=== PATIENT | female | born 1955 | race Caucasian/White ===

== ENCOUNTER 2018-05-21 00:33 | Outpatient (CLI) | payer BC, SELFPAY ==
--- NOTE | 2018-05-21 09:30 | DI.MAMMO_ITS ---
SYMPTOMS/DIAGNOSIS: BREAST CA SCREENING, Z12.31 MAMMOGRAMS: Mammograms were interpreted according to the usual protocol including computer analysis with CAD system, tomosynthesis and C view imaging. Comparison is with the prior examinations. No masses or microcalcifications are seen. There is nothing to suggest malignancy. IMPRESSION: Negative mammogram. Routine screening is recommended. Category 1 , breast density C. MQSA ASSESSMENT OF FINDINGS: Negative. Category 1. Patient will receive a letter notifying them of these results. Bi-RADS category C. The breasts are heterogeneously dense, which may obscure small masses.
== END 2018-05-21 00:53 ==
PROVIDERS: PCP Family Medicine; Visit Provider Nurse Practitioner
DX: Z12.31 Encounter for screening mammogram for malignant neoplasm of breast (principal)
CPT/HCPCS: 77063; 77067

== ENCOUNTER 2020-02-03 10:26 | Outpatient (CLI) | payer OTHER, SELFPAY ==
[2020-02-07 21:51] LABS: SARS-CoV-2 RNA Undetected (Undetected); SARS-CoV-2 Specimen Source Nasopharynx
== END 2020-02-03 10:46 ==
PROVIDERS: PCP Family Medicine; Visit Provider Family Medicine
DX: Z11.59 Encounter for screening for other viral diseases (principal)
CPT/HCPCS: U0003

== ENCOUNTER 2020-02-13 01:18 | Outpatient (CLI) | payer OTHER, SELFPAY ==
--- NOTE | 2020-02-13 | DI.MRI_ITS ---
EXAM: MR LUMBAR SPINE WO CLINICAL HISTORY: BACK PAIN, M54.9. TECHNIQUE: Multiplanar multisequence MRI was performed. COMPARISON: No exams were available for comparison FINDINGS: MR examination of the lumbosacral spine was performed according to the usual protocol. There is a mi ld anterior compression fracture of L1 which is probably old. There is an associated posterior corti kathrin deformity of the superior endplate of the L1 vertebra which protrudes into the spinal canal appro ximately 5 millimeters without evident compression of neural structures or significant central canal spinal stenosis. The conus medullaris appears intact. Mild Ghazal discal vertebral signal changes noted of superior and inferior endplates L3, mild endplate compression of superior endplate of L3 with minimal loss of height anteriorly, these findings are of uncertain chronicity probably old. No other significant bony signal abnormality seen. No significant disc herniation identified in the lumbar region. The bony central spinal canal and ne ural foramina appear well maintained with no stenosis. Moderate facet hypertrophic degenerative becker ges noted at L3-4, L4-5, and L5-S1. IMPRESSION: Presumably old mild compression fracture of L1 vertebral body. Mild superior endplate compression fracture and minimal loss of height anteriorly of L3 vertebral bod y of uncertain age. No evidence of disc herniation, central canal spinal stenosis, or neural foraminal stenosis in the re gion surveyed. DATA REPOSITORY:
== END 2020-02-13 01:38 ==
PROVIDERS: PCP Family Medicine; Visit Provider Family Medicine
DX: M48.56XA Collapsed vertebra, not elsewhere classified, lumbar region, initial encounter for fracture (principal); M54.9 Dorsalgia, unspecified; M51.37 Other intervertebral disc degeneration, lumbosacral region
CPT/HCPCS: 72148

== ENCOUNTER 2020-04-19 00:31 | Outpatient (CLI) | payer OTHER, SELFPAY ==
--- NOTE | 2020-04-19 14:22 | DI.DEXA_ITS ---
EXAM: XR DEXA BONE DENSITY W/WO EVER CLINICAL HISTORY: MENOPAUSE Z78.0 TECHNIQUE: COMPARISON: No exams were available for comparison FINDINGS: DEXA scan was performed according to the usual protocol. Please see the accompanying data sheets. Left hip scanning shows T-score -2.0 with left femoral neck T-score -2.0. Lumbar spine scanning shows T-score -2.2 Left forearm scanning shows T-score -1.8 IMPRESSION: Findings consistent with osteopenia according to the WHO criteria. Mild anterior wedging of a verteb ral body at the thoracolumbar junction is probably developmental in nature. No evidence of vertebral compression fracture. RADIATION DOSE DELIVERED: Total DLP
== END 2020-04-19 00:51 ==
PROVIDERS: PCP Family Medicine; Visit Provider Family Medicine
DX: Z78.0 Asymptomatic menopausal state (principal); M85.89 Other specified disorders of bone density and structure, multiple sites
CPT/HCPCS: 77080

== ENCOUNTER 2020-05-11 03:22 | Outpatient (CLI) | payer OTHER, SELFPAY ==
--- NOTE | 2020-05-11 08:20 | DI.MAMMO_ITS ---
EXAM: MG MAMMO SCREENING CLINICAL HISTORY: SCREENING,Z12.31 TECHNIQUE: Mammograms were interpreted according to the usual protocol including computer analysis w [employer] CAD system, tomosynthesis and C-view imaging. COMPARISON: FINDINGS: The breasts are heterogeneously dense. No dominant mass or clumped microcalcification is identified in either breast. The current examination is compared with previous examinations including May 2018 and there has been no gross interval change in appearance in comparison with the prior studies. IMPRESSION: No specific evidence of malignancy at this time. Routine screening examinations are suggested at yea rly intervals in this age group according to the ACS ACR guidelines. BI-RADS Category 1 - Negative Breast Density - Category C - Heterogeneously dense
== END 2020-05-11 03:42 ==
PROVIDERS: PCP Family Medicine; Visit Provider Family Medicine
DX: Z12.31 Encounter for screening mammogram for malignant neoplasm of breast (principal)
CPT/HCPCS: 77063; 77067

== ENCOUNTER 2020-05-21 10:25 | Outpatient (REF) | payer OTHER, SELFPAY ==
[2020-05-21 21:35] LABS: HCT 42.7 % (36.0-46.0); HGB 13.7 g/dL (11.2-15.7); MCH 29.3 pg (27.0-33.0); MCHC 32.1 % (32.0-36.0); MCV 91.4 fL (80-95); MPV 10.3 fL (8.0-11.0); Platelet Count 259 10^3/uL (130-400); RBC 4.67 10^6/uL (3.93-5.22); RDW-SD 44.2 fL; WBC 3.91 10^3/uL (4.4-10.8)
[2020-05-21 21:45] LABS: BUN 16 mg/dL (7-18); CREATININE 0.77 mg/dL (0.55-1.02); Calcium 8.8 mg/dL (8.5-10.1); Calculated LDL 151 mg/dL (<100); Cholesterol 278 mg/dL (<200); Glucose 74 mg/dL (74-106); HDL Cholesterol 118 mg/dL (40-60); Triglyceride 47 mg/dL (<150)
[2020-05-21 21:46] LABS: ALT 23 U/L (14-59); AST 21 U/L (15-37); Alkaline Phosphatase 74 U/L (46-116); Anion Gap 9.8 mmol/L (3-11); Bilirubin, Total 0.6 mg/dL (0.2-1.0); CO2 27.2 mmol/L (21.0-32.0); Chloride 106 mmol/L (98-107); Potassium 4.2 mmol/L (3.5-5.1); Sodium 143 mmol/L (136-145); Total Protein 7.1 g/dL (6.4-8.2)
== END 2020-05-21 10:45 ==
LOC: NCHCN 10:25
PROVIDERS: PCP Family Medicine; Visit Provider Family Medicine
DX: Z00.00 Encounter for general adult medical examination without abnormal findings (principal)
CPT/HCPCS: 80053; 80061; 85027

== ENCOUNTER 2020-05-25 14:30 | Outpatient (REF) | payer OTHER, SELFPAY ==
--- NOTE | 2020-05-25 09:00 | PAPFT_PTH ---
PATIENT: Mee Amador LOC: [facility]#:[id number] AGE/SX: 65/F ROOM: RE05/25/[address]: Rosemary Salazar : 1955 BED: DIS: 05/25/2020 SPEC #: [id number] RECD: 05/28/20 12:38 STATUS: MONIQUE REColt #: [id number] ALFONSO: 05/25/20 09:[address]: Rosemary Salazar DEPT: [facility] Cytology RECD BY: Molly Tello Tissues: 1 - CX/ENDOCX FOR PAP SMEARS Procedures: PAP THIN PREP/[facility] Screening HPV DNA PROBE Comments: [id number] ([facility])
== END 2020-05-25 14:50 ==
LOC: NCHCN 14:30
PROVIDERS: PCP Family Medicine; Visit Provider Family Medicine
DX: Z00.00 Encounter for general adult medical examination without abnormal findings (principal); Z12.4 Encounter for screening for malignant neoplasm of cervix; Z01.419 Encounter for gynecological examination (general) (routine) without abnormal findings; Z78.0 Asymptomatic menopausal state; R87.810 Cervical high risk human papillomavirus (HPV) DNA test positive
CPT/HCPCS: 88142; 87624

== ENCOUNTER 2020-09-24 15:07 | Outpatient (REF) | payer OTHER, SELFPAY ==
[2020-09-25 02:46] LABS: COVID-19 RT-PCR UVMMC Result Negative (Negative)
== END 2020-09-24 15:08 | disposition home or self-care (01) ==
LOC: NCHCN 15:07
PROVIDERS: PCP Family Medicine; Visit Provider Internal Medicine
DX: Z20.822 Contact with and (suspected) exposure to COVID-19 (principal); J06.9 Acute upper respiratory infection, unspecified
CPT/HCPCS: U0003

== ENCOUNTER 2020-11-28 13:58 | Outpatient (REF) | payer OTHER, SELFPAY ==
[2020-11-28 21:22] LABS: HCT 40.5 % (36.0-46.0); HGB 13.2 g/dL (11.2-15.7); MCH 29.4 pg (27.0-33.0); MCHC 32.6 % (32.0-36.0); MCV 90.2 fL (80-95); Platelet Count 312 10^3/uL (130-400); RBC 4.49 10^6/uL (3.93-5.22); RDW 13.2 % (11.7-14.6); RDW-SD 43.8 fL; WBC 6.64 10^3/uL (4.4-10.8)
[2020-11-28 21:29] LABS: ESR 13 mm/hr (0-30)
[2020-11-30 12:27] LABS: Lyme Ab w Rflx to Lyme Confirm Positive (Negative)
[2020-12-01 19:37] LABS: Anaplasma phagocytophilum Negative (Negative); B. miyamotoi PCR Negative (Negative); Babesia divergens/MO-1 Negative (Negative); Babesia duncani Negative (Negative); Babesia microti Negative (Negative); Ehrlichia chaffeensis Negative (Negative); Ehrlichia ewingii/canis Negative (Negative); Ehrlichia muris eauclairensis Negative (Negative)
[2020-12-04 15:47] LABS: IgG Band(s) p58; IgG Immunoblot Negative (Negative); IgM Band(s) p23; IgM Immunoblot Negative (Negative)
== END 2020-11-28 13:59 | disposition home or self-care (01) ==
LOC: NCHCN 13:58
PROVIDERS: PCP Family Medicine; Visit Provider Family Medicine
DX: M25.59 Pain in other specified joint (principal); M79.18 Myalgia, other site
CPT/HCPCS: 85027; 85652; 86617; 87798; 86618

== ENCOUNTER 2021-04-29 03:06 | Outpatient (CLI) | payer MEDICARE, SELFPAY ==
[2021-04-29 11:33] LABS: Folate 17.6 ng/mL (8.6-20.0)
== END 2021-04-29 03:07 | disposition home or self-care (01) ==
PROVIDERS: PCP Family Medicine; Visit Provider Physical Medicine & Rehabilitation
DX: R53.83 Other fatigue (principal); M79.10 Myalgia, unspecified site; M89.8X8 Other specified disorders of bone, other site; G47.8 Other sleep disorders
CPT/HCPCS: 36415; 82746

== ENCOUNTER 2021-06-18 11:26 | Outpatient (REF) | payer MEDICARE, SELFPAY ==
[2021-06-18 15:09] LABS: ALT 23 U/L (14-59); AST 17 U/L (15-37); Albumin 3.9 g/dL (3.4-5.0); Alkaline Phosphatase 92 U/L (46-116); Anion Gap 8.9 mmol/L (3-11); BUN 20 mg/dL (7-18); Bilirubin, Total 0.7 mg/dL (0.2-1.0); CO2 29.1 mmol/L (21.0-32.0); CREATININE 0.8 mg/dL (0.55-1.02); Calcium 9.4 mg/dL (8.5-10.1); Calculated LDL 146 mg/dL (<100); Chloride 104 mmol/L (98-107); Cholesterol 270 mg/dL (<200); Glucose 76 mg/dL (74-106); HDL Cholesterol 113 mg/dL (40-60); Potassium 4.7 mmol/L (3.5-5.1); Sodium 142 mmol/L (136-145); Total Protein 7.1 g/dL (6.4-8.2); Triglyceride 55 mg/dL (<150)
[2021-06-20 01:40] LABS: Vitamin D 25 Total 30.5 ng/mL (30-100)
== END 2021-06-18 11:27 | disposition home or self-care (01) ==
LOC: NCHCN 11:26
PROVIDERS: PCP Family Medicine; Visit Provider Family Medicine
DX: E78.5 Hyperlipidemia, unspecified (principal); E55.9 Vitamin D deficiency, unspecified; M25.50 Pain in unspecified joint
CPT/HCPCS: 80053; 80061; 82306

== ENCOUNTER 2021-08-08 10:17 | Outpatient (REF) | payer MEDICARE, SELFPAY ==
--- NOTE | 2021-08-08 09:00 | PAPFT_PTH ---
PATIENT: Mee Amador LOC: [facility] U#:[id number] AGE/SX: 66/F ROOM: RE08/08/[address]: Rosemary Salazar : 1955 BED: DIS: 08/08/2021 SPEC #: [id number] RECD: 08/08/21 18:00 STATUS: MONIQUE CEVALLOS #: [id number] ALFONSO: 08/08/21 09:[address]: Rosemary Salazar [facility] Cytology RECD BY: Molly Tello Tissues: 1 - CX/ENDOCX FOR PAP SMEARS Procedures: PAP THIN PREP/[facility] Screening HPV DNA PROBE Comments: [id number]
== END 2021-08-08 10:18 | disposition home or self-care (01) ==
LOC: NCHCN 10:17
PROVIDERS: PCP Family Medicine; Visit Provider Family Medicine
DX: Z12.4 Encounter for screening for malignant neoplasm of cervix (principal); Z11.51 Encounter for screening for human papillomavirus (HPV); Z01.419 Encounter for gynecological examination (general) (routine) without abnormal findings
CPT/HCPCS: 88142; 87624

== ENCOUNTER → 2022-04-09 02:10 | Outpatient (CLI) | payer MEDICARE, SELFPAY ==
--- NOTE | 2022-04-09 | DI.MAMMO_ITS ---
Exam(s) MAMMO SCREENING EXAM: MAMMO SCREENING CLINICAL HISTORY: SCREENING MAMMO FOR BREAST CANCER Z12.31 TECHNIQUE: Mammograms were interpreted according to the usual protocol including computer analysis w [facility] CAD system, tomosynthesis and C-view imaging. COMPARISON: FINDINGS: The breasts are heterogeneously dense. No dominant mass or clumped microcalcification is identified in either breast. The current examination is compared with previous examinations including April 13 and there has been no gross interval change in appearance in comparison with the prior studies. IMPRESSION: No specific evidence of malignancy at this time. Routine screening examinations are suggested at yea rly intervals in this age group according to the ACS ACR guidelines. BI-RADS Category 1 - Negative Breast Density - Category C - Heterogeneously dense
== END ==
PROVIDERS: PCP Family Medicine; Visit Provider Family Medicine
DX: Z12.31 Encounter for screening mammogram for malignant neoplasm of breast (principal); R92.8 Other abnormal and inconclusive findings on diagnostic imaging of breast
CPT/HCPCS: 77063; 77067

== ENCOUNTER 2022-11-26 16:14 | Outpatient (REF) | payer MEDICARE, SELFPAY ==
--- NOTE | 2022-11-26 11:30 | PAPFT_PTH ---
PATIENT: Mee Amador LOC: [facility]#:[id number] AGE/SX: 67/F ROOM: RE11/26/[address]: Rosemary Salazar : 1955 BED: DIS: 11/26/2022 SPEC #: [id number] RECD: 11/26/22 17:30 STATUS: MONIQUE REColt #: [id number] ALFONSO: 11/26/22 11:[address]: Rosemary Salazar DEPT: [facility] Cytology RECD BY: Molly Tello Tissues: 1 - CX/ENDOCX FOR PAP SMEARS Procedures: PAP THIN PREP/[facility] Screening HPV DNA PROBE Comments: [id number]
== END 2022-11-26 16:15 | disposition home or self-care (01) ==
LOC: NCHCN 16:14
PROVIDERS: PCP Family Medicine; Visit Provider Family Medicine
DX: Z11.51 Encounter for screening for human papillomavirus (HPV) (principal); Z01.419 Encounter for gynecological examination (general) (routine) without abnormal findings
CPT/HCPCS: 88142; 87624

== ENCOUNTER 2024-12-01 02:26 | Outpatient (CLI) | payer MEDICARE, SELFPAY ==
--- NOTE | 2024-12-01 | DI.DEXA_ITS ---
Exam(s) XR DEXA BONE DENSITY W/WO EVER EXAM: XR DEXA BONE DENSITY W/WO EVER CLINICAL HISTORY: ASYMPTOMATIC MENOPAUSAL STATE,Z78.0 TECHNIQUE: COMPARISON: CR XR DEXA BONE DENSITY W/WO EVER from 04/19/2020 FINDINGS: Lateral Spine Image: Unremarkable. No compression deformities identified. There is mild retrolisthes is of L3 on L4. Left hip: Total T-Score: -2.3. This compares to -2.0 on the prior examination. Total Z-Score: -0.9 T- and Z-scores: Findings are consistent with osteopenia. Lumbar Spine: Total T-Score: -2.7. This compares to -2.2 on the prior examination. Total Z-Score: -0.6 T- and Z-scores: Findings are consistent with osteoporosis. There is osteoporosis in the left forearm. IMPRESSION: Osteoporosis seen in the lumbar spine and left forearm.
== END 2024-12-01 02:46 ==
LOC: DI 02:26
PROVIDERS: PCP Family Medicine; Visit Provider Family Medicine
DX: Z78.0 Asymptomatic menopausal state (principal); Z13.820 Encounter for screening for osteoporosis; M81.0 Age-related osteoporosis without current pathological fracture
CPT/HCPCS: 77080

== ENCOUNTER → 2025-07-12 13:52 | Outpatient (CLI) | payer MEDICARE, SELFPAY ==
--- NOTE | 2025-07-12 | DI.MAMMO_ITS ---
Exam(s) MAMMO SCREENING EXAM: MAMMO SCREENING CLINICAL HISTORY: SCREENING, Z12.31 TECHNIQUE: Mammograms were interpreted according to the usual protocol including computer analysis with CAD system, tomosynthesis and C-view imaging. COMPARISON: 2015 through 2021 FINDINGS: The breasts are composed of heterogeneously dense fibroglandular densities, Breast Density category C. No suspicious masses or suspicious microcalcifications are seen. No skin thickening or abnormal axillary lymph nodes are seen. There has been no significant change from prior exams. IMPRESSION: BI-RADS Category 1, Negative mammogram. Yearly screening mammography is recommended. Breast Density: Category C - The breasts are heterogeneously dense, which may obscure small masses. Breast density Category C or D implies that the patient has dense breast tissue. Dense breast tissue can make it harder to find cancer on a mammogram. Dense breast tissue is also associated with an increased risk of breast cancer. This information about the result of the mammogram report was provided to the patient to raise their awareness. Use this report when you speak with the patient about their risks for breast cancer, which includes their family history. At that time, you may recommend additional screening tests (Ultrasound or MRI) as these tests may add significant information. A negative radiographic report should not delay biopsy if a dominant or clinically suspicious mass is present. Up to ten percent of cancers are not identified on mammography. A negative report may reinforce clinical impression. Adenosis and dense breasts may obscure an underlying neoplasm. False positive reports average 6 to 10%.
== END ==
LOC: DI 13:52
PROVIDERS: PCP Family Medicine; Visit Provider Family Medicine
DX: Z12.31 Encounter for screening mammogram for malignant neoplasm of breast (principal); R92.323 Mammographic fibroglandular density, bilateral breasts; R92.333 Mammographic heterogeneous density, bilateral breasts
CPT/HCPCS: 77063; 77067